=== PATIENT | female | born 1985 | race African-American/Black ===

== ENCOUNTER 2017-04-16 20:05 | Emergency (ER) | payer OTHER ==
[2017-04-16 20:52] LABS: BILIRUBIN NEGATIVE (NEGATIVE); BLOOD TRACE-INTACT Ery/uL (NEGATIVE); CLARITY CLEAR (CLEAR); COLOR YELLOW (YELLOW); GLUCOSE (U) NORMAL (NORMAL); KETONE (U) NEGATIVE (NEGATIVE); LEUKOCYTES TRACE Leu/uL (NEGATIVE); NITRITE NEGATIVE (NEGATIVE); PROTEIN NEGATIVE (NEGATIVE); SPECIFIC GRAVITY 1.025 (1.001-1.030); pH 5.5 (5.0-9.0)
[2017-04-16 20:59] LABS: URINARY RBC RARE; URINARY WBC RARE
== END 2017-04-16 23:10 | disposition left against medical advice (07) ==
LOC: FER 20:05
PROVIDERS: Emergency Medicine
DX: R30.0 Dysuria (principal); R50.9 Fever, unspecified; R42 Dizziness and giddiness; Z88.0 Allergy status to penicillin; Z88.1 Allergy status to other antibiotic agents; Z53.20 Procedure and treatment not carried out because of patient's decision for unspecified reasons
CPT/HCPCS: 81001